=== PATIENT | male | born 1945 | race Caucasian/White ===

== ENCOUNTER 2021-06-27 01:37 | Emergency (ER) | payer BC ==
[~2021-06-27] VITALS: Ht 170.2 cm; Wt 80.7 kg
[2021-06-27 02:21] LABS: HEMATOCRIT 34.8 % (36.7-47.1); MEAN CORPUSCULAR HEMOGLOBIN 32.9 uug (23.8-33.4); MEAN CORPUSCULAR VOLUME 97.8 fL (73.0-96.2); PLATELET COUNT (AUTO) 164 K/uL (152-348)
[2021-06-27 02:29] LABS: CARBON DIOXIDE 26 mmol/L (21-32); CHLORIDE 107 mmol/L (98-107); CREATININE 1.5 mg/dL (0.6-1.3); GLUCOSE 98 mg/dL (74-106); POTASSIUM 4.4 mmol/L (3.5-5.1); UREA NITROGEN, BLOOD 23 mg/dL (7-18)
[2021-06-27 02:42] LABS: ALANINE AMINOTRANSFERASE 19 U/L (16-63); ALKALINE PHOSPHATASE 57 U/L (50-136); ASPARTATE AMINOTRANSFERASE 17 U/L (15-37); BILIRUBIN,DIRECT 0.1 mg/dL (0.0-0.2); BILIRUBIN,TOTAL 0.3 mg/dL (0.2-1.0); TOTAL PROTEIN, SERUM 6.7 g/dL (6.4-8.2)
--- NOTE | 2021-06-27 04:30 | NUR ---
PATIENT WANTS TO BE D/C'ED. DR ESCALERA INTO EVAL PATIENT.
--- NOTE | 2021-06-27 04:52 | NUR ---
Patient discharged to home in stable condition. Written and verbal after care instructions given. Patient verbalizes understanding of instructions. Stressed follow up or return to ER for worsening s/s.
[2021-06-27 04:55] VITALS: BP 110/62
== END 2021-06-27 04:55 | disposition home or self-care (01) ==
LOC: ER 01:41
DX: E29.1 Testicular hypofunction (principal); I44.7 Left bundle-branch block, unspecified; R94.31 Abnormal electrocardiogram [ECG] [EKG]; I42.9 Cardiomyopathy, unspecified; Z95.810 Presence of automatic (implantable) cardiac defibrillator
CPT/HCPCS: 71045; 84484; 85025; 85651; 87040; 93005; A4663

== ENCOUNTER 2022-07-21 15:17 | Inpatient (IN) | payer BC ==
[~2022-07-21] VITALS: Ht 172.7 cm; Wt 54.0 kg
--- NOTE | 2022-07-21 15:17 | NUR ---
Patient is lethargic-looking, unable to recall his exact home medicines and its dosages at this time.
--- NOTE | 2022-07-21 15:29 | NUR ---
seen and examined by
[2022-07-21 15:44] LABS: HEMATOCRIT 46.9 % (36.7-47.1); MEAN CORPUSCULAR HEMOGLOBIN 31.7 uug (23.8-33.4); MEAN CORPUSCULAR VOLUME 95.9 fL (73.0-96.2); PLATELET COUNT (AUTO) 145 K/uL (152-348)
[2022-07-21] MEDS ORDERED: IPRATROPIUM BROMIDE 0.5 MG/2.5 ML NEBU NEB ONE (15:45)
[2022-07-21] MEDS ORDERED: methylPREDNISolone SOD SUCC 125 MG/2 ML VIAL ONE (15:45)
[2022-07-21] MEDS ORDERED: FAMOTIDINE. 20 MG/2 ML VIAL IV ONE ×2 (15:45)
[2022-07-21] MEDS ORDERED: methylPREDNISolone SOD SUCC 125 MG/2 ML VIAL IV ONE (15:45)
[2022-07-21] MEDS ORDERED: ALBUTEROL SULFATE 2.5 MG/3 ML NEBU NEB ONE (15:45)
[2022-07-21] MEDS ORDERED: ALBUTEROL SULFATE 2.5 MG/3 ML NEBU ONE (15:49)
[2022-07-21] MEDS ORDERED: IPRATROPIUM BROMIDE 0.5 MG/2.5 ML NEBU ONE (15:49)
--- NOTE | 2022-07-21 16:07 | NUR ---
Patient's spouse came and gave a list of patient's home medicines.
[2022-07-21] MEDS ORDERED: FURO40TA5 PO (16:09)
[2022-07-21] MEDS ORDERED: MIRT7.5T10 PO (16:09)
[2022-07-21] MEDS ORDERED: ISOS5TAB3 PO (16:09)
[2022-07-21] MEDS ORDERED: LORA1TAB PO (16:11)
[2022-07-21] MEDS ORDERED: SACU1TAB PO (16:11)
[2022-07-21] MEDS ORDERED: ALFU10TA10 PO (16:11)
[2022-07-21] MEDS ORDERED: CARV6.252 PO (16:12)
[2022-07-21] MEDS ORDERED: CLOP75TA33 PO (16:12)
[2022-07-21] MEDS ORDERED: FINA5TAB11 PO (16:12)
[2022-07-21] MEDS ORDERED: ROSU20TA32 PO (16:13)
[2022-07-21] MEDS ORDERED: SENN8.6T22 PO (16:13)
[2022-07-21] MEDS ORDERED: MIRA50TA PO (16:13)
[2022-07-21] MEDS ORDERED: ASPI81TA31 PO (16:14)
[2022-07-21] MEDS ORDERED: LEVOTHYROXINE (16:14)
[2022-07-21] MEDS ORDERED: ZOLP10TA6 PO (16:14)
[2022-07-21 16:18] LABS: CARBON DIOXIDE 20 mmol/L (21-32); CHLORIDE 100 mmol/L (98-107); GLUCOSE 121 mg/dL (74-106); POTASSIUM 5.5 mmol/L (3.5-5.1); UREA NITROGEN, BLOOD 59 mg/dL (7-18)
[2022-07-21 16:25] LABS: ALANINE AMINOTRANSFERASE 31 U/L (16-63); ALKALINE PHOSPHATASE 38 U/L (50-136); ASPARTATE AMINOTRANSFERASE 29 U/L (15-37); BILIRUBIN,DIRECT 0.3 mg/dL (0.0-0.2); BILIRUBIN,TOTAL 1.9 mg/dL (0.2-1.0); TOTAL PROTEIN, SERUM 7.1 g/dL (6.4-8.2)
--- NOTE | 2022-07-21 16:38 | NUR ---
"Plan to admit" per Dr Rendon. ER registration/admitting staff Lois Maddox & Meggan notified.
--- NOTE | 2022-07-21 17:11 | NUR ---
Patient's said that this patient is not taking Senna, Isosorbdie, clopidrogel and Mirabegron anymore.
--- NOTE | 2022-07-21 20:00 | NUR ---
Patient used urinal bedside. Voided 200ml
--- NOTE | 2022-07-21 20:29 | NUR ---
Patient has been accepted to third floor room 319
--- NOTE | 2022-07-21 21:08 | NUR ---
COVID swab sent to lab
--- NOTE | 2022-07-21 21:22 | NUR ---
Given verbal by Dr. Snider to give patient Benadryl 25mg PO for urticaria and Tylenol 650mg PO for pain.
[2022-07-21] MEDS ORDERED: diphenhydrAMINE 25 MG CAP PO ONE ×2 (21:23→21:30)
[2022-07-21] MEDS ORDERED: ACETAMINOPHEN 325 MG SUPP ONE (21:24)
[2022-07-21] MEDS ORDERED: ACETAMINOPHEN 325 MG TABLET ONE (21:25)
[2022-07-21] MEDS ORDERED: ACETAMINOPHEN 325 MG TABLET PO ONE (21:30)
[2022-07-21] MEDS ORDERED: ACETAMINOPHEN 325 MG TABLET PO PRN (22:00)
[2022-07-21] MEDS ORDERED: ONDANSETRON 4 MG/2 ML VIAL IV PRN (22:00)
[2022-07-21] MEDS ORDERED: ALBUTEROL SULFATE 2.5 MG/ 0.5 ML NEBU NEB ONE ×2 (22:00)
[2022-07-21] MEDS ORDERED: HYDROCODONE/APAP 5-325MG TABLET PO PRN (22:00)
[2022-07-21] MEDS ORDERED: diphenhydrAMINE 50 MG/1 ML VIAL IV PRN (22:00)
[2022-07-21] MEDS ORDERED: TEMAZEPAM 15 MG CAPSULE PO PRN (22:00)
--- NOTE | 2022-07-21 22:27 | NUR ---
Called third floor to give report. RN unavaliable at this time. Waiting for call back.
--- NOTE | 2022-07-21 22:40 | NUR ---
Respiratory treatment at bedside
--- NOTE | 2022-07-21 22:43 | NUR ---
Report given to Diamond BLANCO
--- NOTE | 2022-07-21 23:15 | NUR ---
Patient taken to third floor room 319 via gurney with personal belongings. Patient in stable condition, no signs of distress. Diamond BLANCO aware of patients arrival.
--- NOTE | 2022-07-21 23:20 | NUR ---
Received from ER via [facility] awake alert and oriented x3, dx: Anaphylaxis, ARF. In no acute distress, denies chest pain. IV access to LAC intact and patent. Rt chest AICD intact. Routine admission care rendered, oriented to room, TV, BR and call light. Care plan initiated. Needs assessed and attended to.
[2022-07-22 00:05] VITALS: BP 122/77
[2022-07-22] MEDS ORDERED: ZOLPIDEM 5 MG TABLET PO ONE (00:15)
[2022-07-22] MEDS: IV NS 1000 ML 1,000 ML IV PRN (01:32)
--- NOTE | 2022-07-22 02:15 | NUR ---
Patient is very agitated screaming and yelling to staff and removing lines. LOGAN Borden informed with new order Olanzapine 5 MG IM x1 dose.
[2022-07-22] MEDS ORDERED: OLANZAPINE 10 MG VIAL IM ONE ×2 (03:00→10:15)
[2022-07-22 07:05] LABS: HEMATOCRIT 43.7 % (36.7-47.1); MEAN CORPUSCULAR HEMOGLOBIN 31.9 uug (23.8-33.4); MEAN CORPUSCULAR VOLUME 96.1 fL (73.0-96.2); PLATELET COUNT (AUTO) 141 K/uL (152-348)
[2022-07-22 07:20] LABS: IRON, SERUM 21 ug/dL (50-175)
--- NOTE | 2022-07-22 08:00 | NUR ---
RECEIVED PATIENT IN BED AWAKE ALERT TO SELF WITH CONFUSSION AND DISORIENTED VERY AGGRESSIVE WITH REINALDO WRIST RESTRAINTS FOR SAFETY CIRCULATION CHECKED AND RELEASED.IV WAS REMOVED BY PATIENT AWAITING FOR MID LINE RN TO INSERT A MIDLINE
[2022-07-22 08:21] LABS: ALANINE AMINOTRANSFERASE 31 U/L (16-63); ALKALINE PHOSPHATASE 37 U/L (50-136); ASPARTATE AMINOTRANSFERASE 39 U/L (15-37); BILIRUBIN,TOTAL 1.7 mg/dL (0.2-1.0); CARBON DIOXIDE 19 mmol/L (21-32); CHLORIDE 101 mmol/L (98-107); CHOLESTEROL 91 mg/dL (<200); CREATININE 2.8 mg/dL (0.6-1.3); GLUCOSE 121 mg/dL (74-106); HDL CHOLESTEROL 51 mg/dL (40-60); MAGNESIUM 2.2 mg/dL (1.8-2.4); PHOSPHOROUS 3.8 mg/dL (2.5-4.9); POTASSIUM 4.5 mmol/L (3.5-5.1); TOTAL PROTEIN, SERUM 7.8 g/dL (6.4-8.2); TRIGLYCERIDES 42 MG/DL (30-150); UREA NITROGEN, BLOOD 62 mg/dL (7-18)
[2022-07-22 08:59] LABS: THYROID STIMULATING HORMONE 0.686 mIU/mL (0.358-3.740)
[2022-07-22] MEDS ORDERED: FAMOTIDINE 20 MG TABLET PO ONE (09:00)
[2022-07-22] MEDS: FINASTERIDE 5 MG TABLET PO SCH (09:07)
[2022-07-22] MEDS: ASPIRIN 81 MG TAB.CHEW PO SCH (09:08)
--- NOTE | 2022-07-22 09:39 | NUR ---
PLANT AND INSTRUMENT ENGINEER HERE TO SEE PATIENT PATIENT REFUSED VERY UNCOOPERATIVE DID TAKE HIS ORAL MEDICATIONS BUT REFUSED HIS BREAKFAST.
--- NOTE | 2022-07-22 10:17 | NUR ---
PATIENT SEEN AND EXAMINED BY JOSUE CHASE AWARE THAT PATIENT IS SO AGGRESSIVE COMBATIVE KICKING PULLING WITH ORDER TO GIVE ZYPREXIA AND GIVEN AT THIS TIME.
[2022-07-22 11:45] VITALS: BP 117/70
--- NOTE | 2022-07-22 13:30 | NUR ---
PATIENTS HERE UPSET THAT PATIENT HAS WRIST RESTRAINTS EXPLAINED TO HER THAT HE HAS BEEN VERY AGGRESSIVE KICKING PULLING PULLED OUT HIS IV LINE EVEN WHEN THE MIDLINE NURSE CAME TO INSERT HIS LINE IT NEEDED 3 PEOPLE HOLDING HIM TO INSERT THE LINE SHE COMMENTED THAT THE WRIST RESTRAINTS WAS TIGHT BUT I TOLD HER THAT HE WAS PULLING ON THE RESTRAINTS IN ATTEMPT TO GET OUT OF IT.SHE WANTS TO TALK TO JOSUE CHASE SO I GAVE JOSUE HER NUMBER AND HE STATED WILL CFALL AND UPDATE HIM OF PLAN OF CARE.RESTRAINTS OFF AT THIS TIME IS IN THE ROOM SHE STATED THAT PATIENT SHOULD BE ON KOSHER DIET SO I NOTIFIED JOSUE GOT ORDER AND NOTIFIED THE KITCHEN.
[2022-07-22] MEDS ORDERED: ZOLPIDEM 5 MG TABLET PO PRN ×2 (14:00→21:00)
--- NOTE | 2022-07-22 14:45 | NUR ---
RESTRAINTS STILL OFF PATIENTS IS STILL HERE AND SHE WENT TO HER CAR AND BROUGHT HIS CANE AND I ASKED HER TO TAKE THE CANE HOME BECAUSE ITS NOT SAFE FOR PATIENT TO BE GETTING UP ALONE AND WITH THE CANE IN THE ROOM HE MIGHT GET UP AND THINKS HE CAN DO IT.PATIENTS STATED THAT HE ALWAYS USES A CANE AT HOME AND THAT HE WILL BE RESPONSIBLE IF ANYTHING HAPPENS SO I NOTIFIED THE MITIGATION SUPERVISOR.
[2022-07-22 14:53] LABS: *BILIRUBIN,URIN NEGATIVE (NEGATIVE); *BLOOD, URINE NEGATIVE (NEGATIVE); *CLARITY,URINE CLEAR (CLEAR); *COLOR,URINE YELLOW (YELLOW); *KETONES,URINE NEGATIVE (NEGATIVE); *UROBILINOGEN,URINE 0.2 E.U./dl (NORMAL); LEUKOCYTE ESTERASE ,URINE NEGATIVE (NEGATIVE); NITRITE, URINE NEGATIVE (NEGATIVE); PH,URINE 5.5 (5.0-8.0); UGLUCOSE NEGATIVE (NEGATIVE)
[2022-07-22 15:15] VITALS: BP 101/61
[2022-07-22 20:34] VITALS: BP 111/68
[2022-07-22] MEDS ORDERED: OLANZAPINE ZYDIS 5 MG TAB.RAPDIS PO SCH (21:00)
[2022-07-22] MEDS ORDERED: MIRTAZAPINE 15 MG TABLET PO SCH (21:00)
[2022-07-22] MEDS ORDERED: ALFUZOSIN HCL 10 MG TAB.SR.24H PO SCH (21:00)
[2022-07-23] MEDS: IV NS 1000 ML 1,000 ML IV PRN (02:37)
[2022-07-23 04:25] VITALS: BP 121/68
--- NOTE | 2022-07-23 05:22 | NUR ---
Slept comfortably through out the night. Remained calm. No aggressive behavior noted. Wrist restraints remained off. No itching noted. All needs attended. Safety precautions maintained. Will endorse to incoming shift.
[2022-07-23 07:52] LABS: HEMATOCRIT 37.9 % (36.7-47.1); MEAN CORPUSCULAR HEMOGLOBIN 31.8 uug (23.8-33.4); MEAN CORPUSCULAR VOLUME 95.8 fL (73.0-96.2); PLATELET COUNT (AUTO) 129 K/uL (152-348)
--- NOTE | 2022-07-23 08:00 | NUR ---
Awake, alert, oriented x 3. IVF infusing. Bed alarm on, call light with in reach.
[2022-07-23 08:12] LABS: ALANINE AMINOTRANSFERASE 20 U/L (16-63); ALKALINE PHOSPHATASE 28 U/L (50-136); ASPARTATE AMINOTRANSFERASE 18 U/L (15-37); BILIRUBIN,TOTAL 1.4 mg/dL (0.2-1.0); CARBON DIOXIDE 22 mmol/L (21-32); CHLORIDE 108 mmol/L (98-107); CREATINE KINASE, TOTAL 196 U/L (39-308); CREATININE 1.9 mg/dL (0.6-1.3); GLUCOSE 96 mg/dL (74-106); MAGNESIUM 2.5 mg/dL (1.8-2.4); PHOSPHOROUS 3.5 mg/dL (2.5-4.9); POTASSIUM 4.5 mmol/L (3.5-5.1); TOTAL PROTEIN, SERUM 6.4 g/dL (6.4-8.2); UREA NITROGEN, BLOOD 61 mg/dL (7-18)
[2022-07-23] MEDS: FINASTERIDE 5 MG TABLET PO SCH (09:56)
[2022-07-23] MEDS: ASPIRIN 81 MG TAB.CHEW PO SCH (09:56)
--- NOTE | 2022-07-23 10:00 | NUR ---
PT Eval done, ambulated with FWW
[2022-07-23 12:00] VITALS: BP 95/52
[2022-07-23] MEDS ORDERED: FAMO10TA41 PO (15:19)
[2022-07-23] MEDS ORDERED: DIPH25TA62 PO (15:19)
[2022-07-23 16:00] VITALS: BP 97/64
--- NOTE | 2022-07-23 17:20 | NUR ---
With discharge order to home. Tele removed. Saline lock removed. Waiting for spouse to picket [employer]
--- NOTE | 2022-07-23 18:28 | NUR ---
Midline removed. DC instructions given to patient and , verbalized understanding. Went home per wheelchair in fair condition, not in distress, afebrile.
[2022-07-24] MEDS ORDERED: FAMOTIDINE 20 MG TABLET PO SCH (09:00)
[2022-07-24 16:06] LABS: A/G RATIO 0.9 (0.7-1.7); ALBUMIN 2.7 g/dL (2.9-4.4); ALPHA-1-GLOBULIN 0.3 g/dL (0.0-0.4); ALPHA-2-GLOBULIN 0.8 g/dL (0.4-1.0); BETA GLOBULIN 0.8 g/dL (0.7-1.3); GAMMA GLOBULIN 1.2 g/dL (0.4-1.8); GLOBULIN, TOTAL 3.1 g/dL (2.2-3.9); M-SPIKE Not Observed g/dL (Not Observed)
== END 2022-07-23 18:20 | disposition home or self-care (01) | DRG 915 ==
LOC: ER 15:17 → TELE3 22:46
PROVIDERS: ADMIT Internal Medicine; ATTEND Nurse Practitioner Acute Care
PROC: 05HC33Z Insertion of Infusion Device into Left Basilic Vein, Percutaneous Approach (ICD-10-PCS; principal; 2022-07-22)
DX: T78.2XXA Anaphylactic shock, unspecified, initial encounter (principal); G93.41 Metabolic encephalopathy; N17.0 Acute kidney failure with tubular necrosis; I48.20 Chronic atrial fibrillation, unspecified; E11.22 Type 2 diabetes mellitus with diabetic chronic kidney disease; N18.9 Chronic kidney disease, unspecified; E03.9 Hypothyroidism, unspecified; Z79.82 Long term (current) use of aspirin; Z79.890 Hormone replacement therapy; Z79.899 Other long term (current) drug therapy; Z95.810 Presence of automatic (implantable) cardiac defibrillator; N40.0 Benign prostatic hyperplasia without lower urinary tract symptoms; Z86.73 Personal history of transient ischemic attack (TIA), and cerebral infarction without residual deficits; G30.9 Alzheimer's disease, unspecified; F02.80 Dementia in other diseases classified elsewhere, unspecified severity, without behavioral disturbance, psychotic disturbance, mood disturbance, and anxiety; I50.9 Heart failure, unspecified
CPT/HCPCS: 36415; 71045; 76770; 83550; 83735; 83970; 84100; 84155; 84165; 84443; 84484; 85025; 85651; A4663; G0378; J2358; J2930; J3490; J3590; J7040; J8499; Q0163

== ENCOUNTER 2023-01-15 15:46 | Inpatient (IN) | payer BC ==
[~2023-01-15] VITALS: Ht 172.7 cm; Wt 82.8 kg
[~2023-01-15 15:46] MED LIST: ALFU10TA10 PO; ASPI81TA31 PO; CARV6.252 PO; DIPH25TA62 PO; FAMO10TA41 PO; FINA5TAB11 PO; FURO40TA5 PO; LEVOTHYROXINE; LORA1TAB PO; MIRT7.5T10 PO; ROSU20TA32 PO; SACU1TAB PO; ZOLP10TA6 PO
[2023-01-15] MEDS ORDERED: ACET325C7 PO (16:33)
[2023-01-15] MEDS ORDERED: ALBU18HF2 IH (16:33)
[2023-01-15] MEDS ORDERED: OXYC5CAP18 PO (16:33)
[2023-01-15] MEDS ORDERED: POLY17PO4 PO (16:33)
[2023-01-15] MEDS ORDERED: CHOL100045 PO (16:33)
[2023-01-15] MEDS ORDERED: LEVO137T2 PO (16:33)
[2023-01-15] MEDS ORDERED: TEST200V3 IM (16:33)
[2023-01-15] MEDS ORDERED: SENN8.6T19 PO (16:33)
[2023-01-15] MEDS ORDERED: OXYC10TA49 PO (16:33)
[2023-01-15] MEDS ORDERED: DAPA5TAB PO (16:33)
[2023-01-15] MEDS ORDERED: MIRT-73 PO (16:33)
[2023-01-15] MEDS ORDERED: ATOR40TA PO (16:33)
[2023-01-15] MEDS ORDERED: CALC0.253 PO (16:33)
[2023-01-15] MEDS ORDERED: LEVE500T83 PO (16:33)
[2023-01-15] MEDS ORDERED: PANT40TA49 PO (16:33)
[2023-01-15] MEDS ORDERED: ALBU2.5V38 IH (16:33)
[2023-01-15] MEDS ORDERED: SACU1TAB PO (16:33)
[2023-01-15] MEDS ORDERED: CARV3.122 PO (16:33)
[2023-01-15] MEDS ORDERED: TAMS-3 PO (16:33)
[2023-01-15] MEDS ORDERED: FURO20TA4 PO (16:33)
[2023-01-15] MEDS ORDERED: FLUT16SP EA NOSTRIL (16:33)
[2023-01-15] MEDS ORDERED: LIDOCAINE 4% PATCH TP (16:33)
[2023-01-15 17:08] LABS: BASOPHILS % (AUTO) 0.5 % (0.0-2.0); EOSINOPHILS # (AUTO) 0.1 K/uL (0.0-0.7); EOSINOPHILS % (AUTO) 2.1 % (0.0-7.0); HEMATOCRIT 39.6 % (36.7-47.1); HEMOGLOBIN 13.2 g/dL (12.5-16.3); LYMPHOCYTES # (AUTO) 1.1 K/uL (0.8-4.8); LYMPHOCYTES % (AUTO) 16.9 % (20.5-51.5); MEAN CORPUSCULAR HEMOGLOBIN 30.5 uug (23.8-33.4); MEAN CORPUSCULAR HGB CONC 34 g/dL (32.5-36.3); MEAN CORPUSCULAR VOLUME 91.1 fL (73.0-96.2); MONOCYTES # (AUTO) 0.7 K/uL (0.1-1.30); NEUTROPHILS # (AUTO) 4.5 K/uL (1.8-8.9); NEUTROPHILS % (AUTO) 69.5 % (38.5-71.5); PLATELET COUNT (AUTO) 143 K/uL (152-348); RED BLOOD CELL COUNT(AUTO) 4.35 MIL/uL (4.06-5.63); RED CELL DISTRIBUTION WIDTH 16.9 % (12.1-16.2); WHITE BLOOD COUNT (AUTO) 6.5 K/uL (3.6-10.2)
[2023-01-15 17:14] LABS: DIFFERENTIAL COMMENT 1
[2023-01-15 17:19] LABS: CALCIUM 9.7 mg/dL (8.5-10.1); CARBON DIOXIDE 24 mmol/L (21-32); CHLORIDE 108 mmol/L (98-107); CREATININE 2.1 mg/dL (0.6-1.3); GLUCOSE 109 mg/dL (74-106); POTASSIUM 4.4 mmol/L (3.5-5.1); SODIUM SERUM 140 mmol/L (136-145); UREA NITROGEN, BLOOD 59 mg/dL (7-18)
[2023-01-15 17:21] LABS: AMMONIA 24 umol/L (11-32)
[2023-01-15 17:26] LABS: ETHANOL < 3 MG/DL (0-10)
[2023-01-15 17:27] LABS: ACETAMINOPHEN < 2.0 ug/mL (10-30); ALANINE AMINOTRANSFERASE 25 U/L (16-63); ALBUMIN 3.4 g/dL (3.4-5.0); ALKALINE PHOSPHATASE 53 U/L (50-136); ASPARTATE AMINOTRANSFERASE 7 U/L (15-37); BILIRUBIN,DIRECT 0.2 mg/dL (0.0-0.2); BILIRUBIN,TOTAL 0.8 mg/dL (0.2-1.0); TOTAL PROTEIN, SERUM 7.1 g/dL (6.4-8.2)
[2023-01-15 17:32] LABS: THYROID STIMULATING HORMONE 0.266 mIU/mL (0.358-3.740)
[2023-01-15 17:43] LABS: *CLARITY,URINE CLEAR (CLEAR); *COLOR,URINE YELLOW (YELLOW)
[2023-01-15 17:44] LABS: *BILIRUBIN,URIN NEGATIVE (NEGATIVE); *BLOOD, URINE NEGATIVE (NEGATIVE); *KETONES,URINE NEGATIVE (NEGATIVE); *PROTEIN,URINE NEGATIVE (NEGATIVE); *UROBILINOGEN,URINE 0.2 E.U./dl (NORMAL); LEUKOCYTE ESTERASE ,URINE NEGATIVE (NEGATIVE); NITRITE, URINE NEGATIVE (NEGATIVE); PH,URINE 5.5 (5.0-8.0); UGLUCOSE 1+ (NEGATIVE)
[2023-01-15 17:59] LABS: *AMPHETAMINE, URINE NEGATIVE (NEGATIVE); *BARBITURATE, URINE NEGATIVE (NEGATIVE); *BENZODIAZEPINE, URINE NEGATIVE (NEGATIVE); *CANNABINOID, URINE NEGATIVE (NEGATIVE); *COCCAINE, URINE NEGATIVE (NEGATIVE); *OPIATE, URINE NEGATIVE (NEGATIVE); *PHENCYCLIDINE SCREEN,URINE NEGATIVE (NEGATIVE); FENTANYL, URINE NEGATIVE (NEGATIVE)
[2023-01-15 18:48] LABS: MAGNESIUM 2.6 mg/dL (1.8-2.4)
[2023-01-15] MEDS ORDERED: MIRTAZAPINE 15 MG TAB.RAPDIS PO SCH (21:00)
[2023-01-15] MEDS ORDERED: ALBUTEROL SULFATE 2.5 MG/3 ML NEBU NEB PRN (21:00)
[2023-01-15] MEDS: TAMSULOSIN HCL 0.4 MG CAP.SR.24H PO SCH ×2 (21:00→23:01)
[2023-01-15] MEDS ORDERED: IV NS 1000 ML 1,000 ML IV PRN (21:00)
[2023-01-15] MEDS ORDERED: Medication Not On Formulary EA (Acetaminophen (Tylenol) 650 MG) PO SCH (21:00)
[2023-01-15] MEDS ORDERED: ACETAMINOPHEN 325 MG TABLET PO PRN (21:00)
[2023-01-15] MEDS ORDERED: SENNOSIDES 1 TABLET PO PRN (21:00)
[2023-01-15] MEDS ORDERED: ONDANSETRON 4 MG/2 ML VIAL IV PRN (21:00)
[2023-01-15 22:30] VITALS: BP 119/74; TEMP 97.6; O2SAT 96
[2023-01-15] MEDS: MELATONIN 3 MG TABLET PO PRN (22:52)
[2023-01-16] VITALS: BP 113/77; TEMP 97.7; O2SAT 94
[2023-01-16] MEDS ORDERED: MIRTAZAPINE 15 MG TAB.RAPDIS ONE (00:01)
[2023-01-16] MEDS: GUAIFENESIN/CODEINE 5 ML LIQUID UDC PO PRN ×3 (01:54→21:53)
[2023-01-16 04:00] VITALS: BP 108/70; TEMP 97.7; O2SAT 95
[2023-01-16 06:19] LABS: BASOPHILS % (AUTO) 0.4 % (0.0-2.0); EOSINOPHILS # (AUTO) 0.1 K/uL (0.0-0.7); EOSINOPHILS % (AUTO) 3.3 % (0.0-7.0); HEMATOCRIT 38.1 % (36.7-47.1); HEMOGLOBIN 13.1 g/dL (12.5-16.3); LYMPHOCYTES # (AUTO) 1.3 K/uL (0.8-4.8); LYMPHOCYTES % (AUTO) 35.4 % (20.5-51.5); MEAN CORPUSCULAR HEMOGLOBIN 30.7 uug (23.8-33.4); MEAN CORPUSCULAR HGB CONC 34 g/dL (32.5-36.3); MEAN CORPUSCULAR VOLUME 89.6 fL (73.0-96.2); MONOCYTES # (AUTO) 0.3 K/uL (0.1-1.30); MONOCYTES % (AUTO) 9.1 % (0.0-11.0); NEUTROPHILS # (AUTO) 1.9 K/uL (1.8-8.9); NEUTROPHILS % (AUTO) 51.8 % (38.5-71.5); PLATELET COUNT (AUTO) 120 K/uL (152-348); RED BLOOD CELL COUNT(AUTO) 4.25 MIL/uL (4.06-5.63); WHITE BLOOD COUNT (AUTO) 3.6 K/uL (3.6-10.2)
[2023-01-16 06:27] LABS: DIFFERENTIAL COMMENT 1
[2023-01-16] MEDS: PANTOPRAZOLE SODIUM 40 MG TABLET.DR PO SCH (06:43)
[2023-01-16 06:49] LABS: ALANINE AMINOTRANSFERASE 25 U/L (16-63); ALBUMIN 3.2 g/dL (3.4-5.0); ALKALINE PHOSPHATASE 50 U/L (50-136); ASPARTATE AMINOTRANSFERASE 20 U/L (15-37); BILIRUBIN,TOTAL 0.9 mg/dL (0.2-1.0); CALCIUM 9.1 mg/dL (8.5-10.1); CARBON DIOXIDE 23 mmol/L (21-32); CHLORIDE 108 mmol/L (98-107); CHOLESTEROL 97 mg/dL (<200); CREATININE 1.8 mg/dL (0.6-1.3); GLUCOSE 114 mg/dL (74-106); HDL CHOLESTEROL 38 mg/dL (40-60); MAGNESIUM 2.4 mg/dL (1.8-2.4); PHOSPHOROUS 3.9 mg/dL (2.5-4.9); POTASSIUM 3.9 mmol/L (3.5-5.1); SODIUM SERUM 140 mmol/L (136-145); TOTAL PROTEIN, SERUM 6.9 g/dL (6.4-8.2); TRIGLYCERIDES 99 MG/DL (30-150); UREA NITROGEN, BLOOD 46 mg/dL (7-18)
[2023-01-16] MEDS ORDERED: LEVOTHYROXINE SODIUM 137 MCG TABLET PO SCH (07:00)
[2023-01-16 08:00] VITALS: BP 117/80; TEMP 98.1
[2023-01-16] MEDS: ASPIRIN 81 MG TAB.CHEW PO SCH (09:28)
[2023-01-16] MEDS: FINASTERIDE 5 MG TABLET PO SCH (09:28)
[2023-01-16] MEDS: levETIRAcetam 500 MG TABLET PO SCH ×2 (09:28→20:41)
[2023-01-16] MEDS: MIRALAX 17 GM POWD.PACK PO SCH (09:28)
[2023-01-16] MEDS: CALCITRIOL 0.25 MCG CAPSULE PO SCH (09:29)
[2023-01-16 10:55] LABS: THYROID STIMULATING HORMONE 0.271 mIU/mL (0.358-3.740)
[2023-01-16 11:12] LABS: *BILIRUBIN,URIN NEGATIVE (NEGATIVE); *BLOOD, URINE NEGATIVE (NEGATIVE); *CLARITY,URINE CLEAR (CLEAR); *COLOR,URINE YELLOW (YELLOW); *KETONES,URINE NEGATIVE (NEGATIVE); *PROTEIN,URINE TRACE (NEGATIVE); *UROBILINOGEN,URINE 0.2 E.U./dl (NORMAL); LEUKOCYTE ESTERASE ,URINE NEGATIVE (NEGATIVE); NITRITE, URINE NEGATIVE (NEGATIVE)
[2023-01-16 11:27] LABS: UGLUCOSE 2+ (NEGATIVE)
[2023-01-16 11:45] LABS: *CREATININE,URINE 102.5 mg/dL (30-125); *URINE TOTAL PROTEIN RANDOM 35.5 mg/dL (<150/24HR)
[2023-01-16 15:24] LABS: BACTERIA,URINE NONE SEEN /HPF (NONE SEEN); RBC,URINE 0-3 /HPF (0-3); SQUAMOUS EPITHELIAL CELL,UR NONE SEEN /HPF (NONE SEEN); WBC,URINE NONE SEEN /HPF (0-3)
[2023-01-16] MEDS: MELATONIN 3 MG TABLET PO PRN (18:49)
[2023-01-16 20:00] VITALS: BP 118/75; TEMP 97.8; O2SAT 98
[2023-01-16] MEDS: TAMSULOSIN HCL 0.4 MG CAP.SR.24H PO SCH (20:41)
[2023-01-16] MEDS ORDERED: MIRTAZAPINE 15 MG TABLET PO SCH (21:00)
[2023-01-17] VITALS: BP 123/74; TEMP 98.1; O2SAT 99
[2023-01-17 04:00] VITALS: BP 99/65; TEMP 98.3; O2SAT 95
[2023-01-17] MEDS: PANTOPRAZOLE SODIUM 40 MG TABLET.DR PO SCH (06:20)
[2023-01-17] MEDS ORDERED: LEVOTHYROXINE SODIUM 137 MCG TABLET PO SCH (07:00)
[2023-01-17 07:48] LABS: BASOPHILS % (AUTO) 0.3 % (0.0-2.0); DIFFERENTIAL COMMENT 0; EOSINOPHILS # (AUTO) 0.1 K/uL (0.0-0.7); EOSINOPHILS % (AUTO) 3.7 % (0.0-7.0); HEMATOCRIT 37.1 % (36.7-47.1); HEMOGLOBIN 12.6 g/dL (12.5-16.3); LYMPHOCYTES # (AUTO) 1.2 K/uL (0.8-4.8); LYMPHOCYTES % (AUTO) 30.2 % (20.5-51.5); MEAN CORPUSCULAR HEMOGLOBIN 30.7 uug (23.8-33.4); MEAN CORPUSCULAR HGB CONC 34 g/dL (32.5-36.3); MEAN CORPUSCULAR VOLUME 90.4 fL (73.0-96.2); MONOCYTES # (AUTO) 0.4 K/uL (0.1-1.30); MONOCYTES % (AUTO) 9.6 % (0.0-11.0); NEUTROPHILS # (AUTO) 2.2 K/uL (1.8-8.9); NEUTROPHILS % (AUTO) 56.2 % (38.5-71.5); PLATELET COUNT (AUTO) 125 K/uL (152-348); RED BLOOD CELL COUNT(AUTO) 4.11 MIL/uL (4.06-5.63); RED CELL DISTRIBUTION WIDTH 17.1 % (12.1-16.2); WHITE BLOOD COUNT (AUTO) 3.9 K/uL (3.6-10.2)
[2023-01-17 08:00] VITALS: BP 100/68; TEMP 98.2; O2SAT 94
[2023-01-17] MEDS: levETIRAcetam 500 MG TABLET PO SCH (09:13)
[2023-01-17] MEDS: CALCITRIOL 0.25 MCG CAPSULE PO SCH (09:13)
[2023-01-17] MEDS: FINASTERIDE 5 MG TABLET PO SCH (09:13)
[2023-01-17] MEDS: MIRALAX 17 GM POWD.PACK PO SCH (09:13)
[2023-01-17] MEDS: ASPIRIN 81 MG TAB.CHEW PO SCH (09:13)
[2023-01-17 09:14] LABS: ALANINE AMINOTRANSFERASE 26 U/L (16-63); ALBUMIN 3.1 g/dL (3.4-5.0); ALKALINE PHOSPHATASE 46 U/L (50-136); ASPARTATE AMINOTRANSFERASE 19 U/L (15-37); BILIRUBIN,TOTAL 0.7 mg/dL (0.2-1.0); CALCIUM 8.9 mg/dL (8.5-10.1); CARBON DIOXIDE 24 mmol/L (21-32); CHLORIDE 109 mmol/L (98-107); CREATININE 1.7 mg/dL (0.6-1.3); GLUCOSE 108 mg/dL (74-106); MAGNESIUM 2.2 mg/dL (1.8-2.4); POTASSIUM 4.7 mmol/L (3.5-5.1); SODIUM SERUM 141 mmol/L (136-145); TOTAL PROTEIN, SERUM 6.5 g/dL (6.4-8.2); UREA NITROGEN, BLOOD 41 mg/dL (7-18)
[2023-01-17 10:13] LABS: CREATINE KINASE, TOTAL 50 U/L (39-308)
[2023-01-17] MEDS ORDERED: LEVO125T8 PO (11:17)
[2023-01-17 12:00] VITALS: BP 115/76; TEMP 97.9; O2SAT 96
[2023-01-17 16:00] VITALS: BP 157/67; TEMP 98.8; O2SAT 97
[2023-01-18 06:06] LABS: PTH, INTACT 14 pg/mL (15-65)
[2023-01-18 10:07] LABS: A/G RATIO 1.1 (0.7-1.7); ALBUMIN 3.1 g/dL (2.9-4.4); ALPHA-1-GLOBULIN 0.2 g/dL (0.0-0.4); ALPHA-2-GLOBULIN 0.8 g/dL (0.4-1.0); BETA GLOBULIN 0.9 g/dL (0.7-1.3); GLOBULIN, TOTAL 2.8 g/dL (2.2-3.9); M-SPIKE Not Observed g/dL (Not Observed)
== END 2023-01-17 16:00 | disposition home health service (06) | DRG 101 ==
LOC: ER 15:47 → TELE3 21:40 → MEDSURG3 01-17 10:06
PROVIDERS: ADMIT Nurse Practitioner Family; ATTEND Nurse Practitioner Family
DX: G40.909 Epilepsy, unspecified, not intractable, without status epilepticus (principal); N17.9 Acute kidney failure, unspecified; E44.1 Mild protein-calorie malnutrition; I50.22 Chronic systolic (congestive) heart failure; I13.0 Hypertensive heart and chronic kidney disease with heart failure and stage 1 through stage 4 chronic kidney disease, or unspecified chronic kidney disease; I48.20 Chronic atrial fibrillation, unspecified; F02.83 Dementia in other diseases classified elsewhere, unspecified severity, with mood disturbance; F02.84 Dementia in other diseases classified elsewhere, unspecified severity, with anxiety; R55 Syncope and collapse; E03.9 Hypothyroidism, unspecified; G30.9 Alzheimer's disease, unspecified; D69.6 Thrombocytopenia, unspecified; E88.09 Other disorders of plasma-protein metabolism, not elsewhere classified; F32.A Depression, unspecified; I25.5 Ischemic cardiomyopathy; I25.10 Atherosclerotic heart disease of native coronary artery without angina pectoris; N18.32 Chronic kidney disease, stage 3b; Z98.61 Coronary angioplasty status; Z86.73 Personal history of transient ischemic attack (TIA), and cerebral infarction without residual deficits; G47.00 Insomnia, unspecified; F41.9 Anxiety disorder, unspecified; E11.22 Type 2 diabetes mellitus with diabetic chronic kidney disease; N40.0 Benign prostatic hyperplasia without lower urinary tract symptoms; Z95.810 Presence of automatic (implantable) cardiac defibrillator; M10.9 Gout, unspecified; Z79.82 Long term (current) use of aspirin; Z79.899 Other long term (current) drug therapy
CPT/HCPCS: 36415; 70450; 71045; 72125; 76770; 83605; 83735; 83970; 84100; 84155; 84165; 84300; 84443; 84484; 85025; 85730; 87040; 93005; 93307; C1758; G0378; G0480; J7040

== ENCOUNTER 2025-03-31 10:10 | Inpatient (IN) | payer BC ==
[2025-03-31] VITALS (7 sets, daily range): BP systolic 118–142; BP diastolic 65–89; TEMP 98.2–98.8; O2SAT 96–99
[~2025-03-31] VITALS: Ht 172.7 cm; Wt 89.5 kg
[~2025-03-31 10:10] MED LIST changes: +ACET325C7 PO; +ALBU18HF2 IH; +ALBU2.5V38 IH; -ALFU10TA10 PO; +ATOR40TA PO; +CALC0.253 PO; +CARV3.122 PO; -CARV6.252 PO; +CHOL100045 PO; +DAPA5TAB PO; -DIPH25TA62 PO; -FAMO10TA41 PO; +FLUT16SP EA NOSTRIL; +FURO20TA4 PO; -FURO40TA5 PO; +LEVE-21 PO; +LEVO125T8 PO; -LEVOTHYROXINE; +LIDOCAINE 4% PATCH TP; -LORA1TAB PO; +MIRT-73 PO; -MIRT7.5T10 PO; +PANT40TA49 PO; +POLY17PO4 PO; -ROSU20TA32 PO; +SENN8.6T19 PO; +TAMS0.4C PO; +TEST200V3 IM
[2025-03-31] MEDS ORDERED: ALBUTEROL SULFATE 2.5 MG/3 ML NEBU ONE (10:25)
[2025-03-31] MEDS ORDERED: DIVA-134 PO (10:34)
[2025-03-31] MEDS ORDERED: BUPR-112 PO (10:34)
[2025-03-31] MEDS ORDERED: ROSU10TA72 PO (10:34)
[2025-03-31] MEDS ORDERED: METO-356 PO (10:34)
[2025-03-31] MEDS ORDERED: ISOS30TA86 PO (10:34)
[2025-03-31 10:37] LABS: PLATELET COUNT (AUTO) 145 K/uL (152-348); RED BLOOD CELL COUNT(AUTO) 3.03 MIL/uL (4.06-5.63); RED CELL DISTRIBUTION WIDTH 16.0 % (12.1-16.2); WHITE BLOOD COUNT (AUTO) 6.3 K/uL (3.6-10.2)
[2025-03-31] MEDS: ALBUTEROL SULFATE 2.5 MG/3 ML NEBU NEB ONE (10:37)
[2025-03-31 10:53] LABS: ASPARTATE AMINOTRANSFERASE 16 U/L (15-37); CREATININE 1.9 mg/dL (0.6-1.3); SODIUM SERUM 141 mmol/L (136-145); TOTAL PROTEIN, SERUM 7.3 g/dL (6.4-8.2); UREA NITROGEN, BLOOD 30 mg/dL (7-18)
[2025-03-31] MEDS: NITROGLYCERIN 0.1 MG/HR (=4 CM2) PATCH TD ONE (11:15)
[2025-03-31] MEDS ORDERED: NITROGLYCERIN 0.4MG/HR (=16 CM2) PATCH TD ONE (11:16)
[2025-03-31] MEDS: FUROSEMIDE 40 MG/4 ML VIAL IV ONE ×2 (11:33→14:40)
[2025-03-31] MEDS ORDERED: ONDANSETRON 4 MG/2 ML VIAL IV PRN (12:00)
[2025-03-31] MEDS ORDERED: MAGNESIUM HYDROXIDE 30 ML LIQUID UDC PO PRN (12:00)
[2025-03-31] MEDS ORDERED: LEVO137T2 PO (12:39)
[2025-03-31] MEDS: DIVALPROEX 500 MG TABLET.DR PO SCH (13:50)
[2025-03-31] MEDS: CARVEDILOL 3.125 MG TABLET PO SCH (16:58)
[2025-03-31] MEDS: ATORVASTATIN 20 MG TABLET PO SCH (20:59)
[2025-03-31] MEDS: TAMSULOSIN HCL 0.4 MG CAP.SR.24H PO SCH (20:59)
[2025-03-31] MEDS: FUROSEMIDE 40 MG/4 ML VIAL IVP SCH (21:00)
[2025-03-31] MEDS ORDERED: FUROSEMIDE 20 MG/2 ML VIAL IV SCH ×2 (21:00)
[2025-03-31] MEDS: ENOXAPARIN SODIUM 40 MG/0.4 ML DISP.SYRIN SQ SCH (21:01)
[2025-03-31] MEDS: ACETAMINOPHEN 325 MG TABLET PO PRN (21:49)
[2025-04-01] VITALS (8 sets, daily range): BP systolic 90–121; BP diastolic 53–82; TEMP 97.6–98.1; O2SAT 96–98
[2025-04-01] MEDS: LEVOTHYROXINE SODIUM 137 MCG TABLET PO SCH (06:10)
[2025-04-01] MEDS: PANTOPRAZOLE SODIUM 40 MG TABLET.DR PO SCH (06:10)
[2025-04-01 07:21] LABS: PLATELET COUNT (AUTO) 129 K/uL (152-348); RED BLOOD CELL COUNT(AUTO) 2.81 MIL/uL (4.06-5.63); RED CELL DISTRIBUTION WIDTH 15.4 % (12.1-16.2); WHITE BLOOD COUNT (AUTO) 3.8 K/uL (3.6-10.2)
[2025-04-01] MEDS ORDERED: LEVOTHYROXINE SODIUM 125 MCG TABLET PO SCH ×2 (07:30)
[2025-04-01 07:39] LABS: ASPARTATE AMINOTRANSFERASE 14 U/L (15-37); CREATININE 2.2 mg/dL (0.6-1.3); SODIUM SERUM 142 mmol/L (136-145); TOTAL PROTEIN, SERUM 6.9 g/dL (6.4-8.2); UREA NITROGEN, BLOOD 36 mg/dL (7-18)
[2025-04-01] MEDS ORDERED: PANTOPRAZOLE SODIUM 40 MG TABLET.DR PO SCH (09:00)
[2025-04-01] MEDS ORDERED: METOPROLOL SUCCINATE XL 25 MG TAB.SR.24H PO SCH (09:00)
[2025-04-01] MEDS ORDERED: Medication Not On Formulary EA (Dapagliflozin Propanediol (Farxiga) 5 MG) PO SCH (09:00)
[2025-04-01] MEDS: ISOSORBIDE MONONITRATE 30 MG TAB.SR.24H PO SCH (09:00)
[2025-04-01] MEDS ORDERED: POTASSIUM CHLORIDE 20 MEQ POWDER PACKET GT ONE (09:00)
[2025-04-01] MEDS ORDERED: ASPIRIN 81 MG TAB.CHEW PO SCH (09:00)
[2025-04-01] MEDS: ASPIRIN 81 MG TAB.CHEW PO SCH (09:19)
[2025-04-01] MEDS: CHOLECALCIFEROL 1,000 UNIT TABLET PO SCH (09:21)
[2025-04-01] MEDS: buPROPion SR 150 MG TABLET.SA PO SCH (09:21)
[2025-04-01] MEDS: FINASTERIDE 5 MG TABLET PO SCH (09:21)
[2025-04-01] MEDS: CALCITRIOL 0.25 MCG CAPSULE PO SCH (09:21)
[2025-04-01] MEDS: POTASSIUM CHLORIDE 20 MEQ TAB.PRT.SR PO ONE (09:24)
[2025-04-01 18:12] LABS: *BILIRUBIN,URIN NEGATIVE (NEGATIVE); *BLOOD, URINE NEGATIVE (NEGATIVE); *CLARITY,URINE CLEAR (CLEAR); *COLOR,URINE YELLOW (YELLOW); *KETONES,URINE NEGATIVE (NEGATIVE); *PROTEIN,URINE NEGATIVE (NEGATIVE); *UROBILINOGEN,URINE 0.2 E.U./dl (NORMAL); LEUKOCYTE ESTERASE ,URINE NEGATIVE (NEGATIVE); NITRITE, URINE NEGATIVE (NEGATIVE); UGLUCOSE NEGATIVE (NEGATIVE)
[2025-04-01 18:23] LABS: *CREATININE,URINE 48.8 mg/dL (30-125); *SODIUM RNDM,URINE 100.0 mmol/L (40-220); *URINE TOTAL PROTEIN RANDOM 9.0 mg/dL (<150/24HR)
[2025-04-02] VITALS (11 sets, daily range): BP systolic 94–111; BP diastolic 44–71; TEMP 97.6–98.7; O2SAT 94–99
[2025-04-02] MEDS: ALBUTEROL SULFATE 2.5 MG/3 ML NEBU NEB PRN (03:57)
[2025-04-02] MEDS: IPRATROPIUM BROMIDE 0.5 MG/2.5 ML NEBU NEB PRN (03:57)
[2025-04-02 06:24] LABS: PLATELET COUNT (AUTO) 142 K/uL (152-348); RED BLOOD CELL COUNT(AUTO) 3.08 MIL/uL (4.06-5.63); RED CELL DISTRIBUTION WIDTH 15.5 % (12.1-16.2); WHITE BLOOD COUNT (AUTO) 4.4 K/uL (3.6-10.2)
[2025-04-02 06:56] LABS: ASPARTATE AMINOTRANSFERASE 12 U/L (15-37); CREATINE KINASE, TOTAL 56 U/L (39-308); CREATININE 2.2 mg/dL (0.6-1.3); SODIUM SERUM 143 mmol/L (136-145); TOTAL PROTEIN, SERUM 7.1 g/dL (6.4-8.2); UREA NITROGEN, BLOOD 45 mg/dL (7-18)
[2025-04-02] MEDS: POTASSIUM CHLORIDE 20 MEQ POWDER PACKET PO ONE (08:51)
[2025-04-02] MEDS: MAG HYDROX/AL HYDROX/SIMETH 30 ML LIQUID UDC PO PRN (13:23)
[2025-04-03] VITALS (8 sets, daily range): BP systolic 92–139; BP diastolic 55–63; TEMP 97.4–97.8; O2SAT 95–99
[2025-04-03] MEDS ORDERED: TEMAZEPAM 15 MG CAPSULE PO PRN (02:15)
[2025-04-03 06:45] LABS: PLATELET COUNT (AUTO) 149 K/uL (152-348); RED BLOOD CELL COUNT(AUTO) 3.02 MIL/uL (4.06-5.63); RED CELL DISTRIBUTION WIDTH 14.9 % (12.1-16.2); WHITE BLOOD COUNT (AUTO) 4.5 K/uL (3.6-10.2)
[2025-04-03 06:59] LABS: CREATININE 2.2 mg/dL (0.6-1.3); SODIUM SERUM 141 mmol/L (136-145); UREA NITROGEN, BLOOD 52 mg/dL (7-18)
[2025-04-04] VITALS (11 sets, daily range): BP systolic 84–125; BP diastolic 56–75; TEMP 97.4–99.6; O2SAT 95–99
[2025-04-04 06:32] LABS: PLATELET COUNT (AUTO) 160 K/uL (152-348); RED BLOOD CELL COUNT(AUTO) 2.86 MIL/uL (4.06-5.63); RED CELL DISTRIBUTION WIDTH 14.5 % (12.1-16.2); WHITE BLOOD COUNT (AUTO) 4.1 K/uL (3.6-10.2)
[2025-04-04 06:47] LABS: CREATININE 2.1 mg/dL (0.6-1.3); SODIUM SERUM 142 mmol/L (136-145); UREA NITROGEN, BLOOD 57 mg/dL (7-18)
[2025-04-04] MEDS: BUMETANIDE 1 MG TABLET PO SCH (08:14)
[2025-04-04 09:06] LABS: PTH, INTACT <6 pg/mL (15-65)
[2025-04-05] VITALS (8 sets, daily range): BP systolic 91–113; BP diastolic 49–72; TEMP 97.8–98.5; O2SAT 94–95
[2025-04-05 06:47] LABS: PLATELET COUNT (AUTO) 160 K/uL (152-348); RED BLOOD CELL COUNT(AUTO) 2.96 MIL/uL (4.06-5.63); RED CELL DISTRIBUTION WIDTH 14.6 % (12.1-16.2); WHITE BLOOD COUNT (AUTO) 4.5 K/uL (3.6-10.2)
[2025-04-05 07:11] LABS: ASPARTATE AMINOTRANSFERASE 9 U/L (15-37); CREATININE 2.2 mg/dL (0.6-1.3); SODIUM SERUM 140 mmol/L (136-145); TOTAL PROTEIN, SERUM 7.0 g/dL (6.4-8.2); UREA NITROGEN, BLOOD 64 mg/dL (7-18)
[2025-04-05 10:09] LABS: A/G RATIO 0.9 (0.7-1.7); BETA GLOBULIN 1.1 g/dL (0.7-1.3); GLOBULIN, TOTAL 3.3 g/dL (2.2-3.9); M-SPIKE Not Observed g/dL (Not Observed); PROTEIN, TOTAL 6.3 g/dL (6.0-8.5)
[2025-04-05] MEDS ORDERED: BUME1TAB8 PO (10:22)
[2025-04-06 10:07] LABS: PTH, INTACT <6 pg/mL (15-65)
[2025-04-06 13:08] LABS: CALCITRIOL VIT D,1,25 DIHYDROX 26.5 pg/mL (24.8-81.5)
== END 2025-04-05 18:10 | DRG 291 ==
LOC: ER 10:10 → TELE3 11:47 → MEDSURG3 04-04 11:55
PROVIDERS: ADMIT Nurse Practitioner Family; ATTEND Nurse Practitioner Family
DX: I13.0 Hypertensive heart and chronic kidney disease with heart failure and stage 1 through stage 4 chronic kidney disease, or unspecified chronic kidney disease (principal); I50.23 Acute on chronic systolic (congestive) heart failure; J96.01 Acute respiratory failure with hypoxia; N18.4 Chronic kidney disease, stage 4 (severe); E44.1 Mild protein-calorie malnutrition; R17 Unspecified jaundice; E88.09 Other disorders of plasma-protein metabolism, not elsewhere classified; N17.9 Acute kidney failure, unspecified; I69.251 Hemiplegia and hemiparesis following other nontraumatic intracranial hemorrhage affecting right dominant side; E11.22 Type 2 diabetes mellitus with diabetic chronic kidney disease; E66.9 Obesity, unspecified; E03.9 Hypothyroidism, unspecified; J45.909 Unspecified asthma, uncomplicated; F03.90 Unspecified dementia, unspecified severity, without behavioral disturbance, psychotic disturbance, mood disturbance, and anxiety; D64.9 Anemia, unspecified; I48.20 Chronic atrial fibrillation, unspecified; I25.5 Ischemic cardiomyopathy; Z95.810 Presence of automatic (implantable) cardiac defibrillator; I25.10 Atherosclerotic heart disease of native coronary artery without angina pectoris; Z98.61 Coronary angioplasty status; Z71.3 Dietary counseling and surveillance; E87.6 Hypokalemia; E83.52 Hypercalcemia; T50.1X5A Adverse effect of loop [high-ceiling] diuretics, initial encounter; Y92.230 Patient room in hospital as the place of occurrence of the external cause; Z68.32 Body mass index [BMI] 32.0-32.9, adult; N40.0 Benign prostatic hyperplasia without lower urinary tract symptoms; Z79.82 Long term (current) use of aspirin; Z79.890 Hormone replacement therapy; Z79.84 Long term (current) use of oral hypoglycemic drugs; Z91.041 Radiographic dye allergy status; Z88.8 Allergy status to other drugs, medicaments and biological substances; Z91.018 Allergy to other foods
CPT/HCPCS: 36415; 71045; 82652; 83735; 83970; 84100; 84155; 84165; 84300; 84484; 85025; 85730; 87086; 93307; 94640; 94760; A4606; A4663; A6209; G0378; J1650; J1938; J3590